=== PATIENT | female | born 1980 | race Caucasian/White ===

== ENCOUNTER → 2019-02-14 | Outpatient (CLI) | payer BC ==
--- NOTE | 2019-02-15 11:42 | MM ---
Reason for exam: clinical finding. History: Family history of breast cancer in maternal grandmother at age 60. Indicated problem(s): lump or thickening in the right breast. Physical Findings: Nurse Summary: 1cm nodule in the right breast at 10 o'clock and a 1cm nodule in the left breast at 2 o'clock (nurse mj). MG 3D Diag Mammo W/Cad CULLEN Bilateral CC and MLO view(s) were taken. The breast tissue is extremely dense which could obscure a lesion on mammography. There is no discrete abnormality. These results were verbally communicated with the patient and result sheet given to the patient on 02/14/19. ASSESSMENT: Incomplete: need additional imaging evaluation, BI-RAD 0 RECOMMENDATION: Ultrasound of both breasts.
--- NOTE | 2019-02-15 11:47 | USB ---
Reason for exam: clinical finding. History: Family history of breast cancer in maternal grandmother at age 60. Indicated problem(s): lump or thickening in the right breast. US Breast Limited BILAT Right limited breast ultrasound including focal area of concern, retroareolar and axilla demonstrates a 1.1 x 0.7 x 0.9cm oval, solid lesion at 10 o'clock and a 1.9 x 0.8 x 1.8cm oval, solid, vascular lesion at 10 o'clock BB. Biopsy advised largest vascular lesion corresponding to palpable, need to sample others base on histology findings from biopsy. Left limited breast ultrasound including focal area of concern, retroareolar and axilla demonstrates a 1.2 x 0.6 x 1.1cm oval, solid lesion at 2 o'clock BB and a 0.5 x 0.4 x 0.4cm oval, cystic lesion at 1 o'clock. These results were verbally communicated with the patient and result sheet given to the patient on 02/14/19. ASSESSMENT: Suspicious, BI-RAD 4 RECOMMENDATION: Ultrasound core biopsy of the right breast. Called Dr. Kahn and Dr. Bullard with mammographic findings and has scheduled an appointment for the patient for 03/01/19 at 10:[address] Arredondo. Biopsy scheduled for 02/22/19 at 2:20. PRELIMINARY REPORT CALLED AND FAXED TO DR. ARREDONDO ON 02/14/19.
== END | disposition home or self-care (01) ==
LOC: RADMAMWWP 13:20
PROVIDERS: ATTEND Obstetrics & Gynecology
DX: R92.8 Other abnormal and inconclusive findings on diagnostic imaging of breast (principal); N64.4 Mastodynia; N63.11 Unspecified lump in the right breast, upper outer quadrant
CPT/HCPCS: 77062; 77066

== ENCOUNTER → 2019-02-22 | Day surgery (SDC) | payer BC ==
[2019-02-22 13:25] VITALS: BP 117/76; PULSE 64; RESP 16; TEMP 98.3; BMI 21.2
--- NOTE | 2019-02-22 16:40 | USB ---
Discontinued right breast biopsy HISTORY: Abnormal breast ultrasound Exam correlated to prior right breast ultrasound dated 02/14/2019 The hypoechoic focus seen on prior exam has decreased in size and now is subcentimeter as compared to prior exam when it measured approximately 2 cm in size. IMPRESSION: Following discussion with the patient patient elects to perform follow-up ultrasound in 3 -6 months to assess for any interval change. Lesion shows an interval decrease in size compared to pr ior exam.
== END | disposition home or self-care (01) ==
LOC: RADUSWWP 13:00
PROVIDERS: ATTEND Student in an Organized Health Care Education/Training Program
DX: R92.8 Other abnormal and inconclusive findings on diagnostic imaging of breast (principal)